=== PATIENT | female | born 1975 | race Two or more races ===

== ENCOUNTER 2023-12-19 10:21 | Emergency (ER) | payer OTHER ==
[~2023-12-19] VITALS: Ht 165.1 cm; Wt 63.6 kg
[2023-12-19 10:26] VITALS: TEMP 98.6
[2023-12-19] MEDS ORDERED: GABA-1181 PO (10:26)
[2023-12-19] MEDS ORDERED: OXYC-490 PO (10:26)
[2023-12-19] MEDS ORDERED: METH-812 PO (10:26)
[2023-12-19] MEDS: LIDOCAINE 5% TRANSDERMAL PATCH TD ONE (11:31)
[2023-12-19] MEDS: KETOROLAC TROMETHAMINE 30 MG/ML VIAL IM ONE (11:31)
[2023-12-19] MEDS: METHOCARBAMOL 500 MG TABLET PO ONE (13:17)
[2023-12-19] MEDS: GABAPENTIN 400 MG CAPSULE PO ONE (13:17)
[2023-12-19] MEDS: ONDANSETRON 4 MG TABLET PO ONE (13:17)
[2023-12-19] MEDS: PROPRANOLOL HCL 10 MG TABLET PO ONE (13:17)
[2023-12-19 13:42] VITALS: BP 154/88; PULSE 96; RESP 18; O2SAT 98
== END 2023-12-19 14:07 | disposition home or self-care (01) ==
LOC: EMS 10:21
DX: S63.92XA Sprain of unspecified part of left wrist and hand, initial encounter (principal); R07.89 Other chest pain; R07.81 Pleurodynia; N64.4 Mastodynia; Z88.0 Allergy status to penicillin; Z79.899 Other long term (current) drug therapy; W01.0XXA Fall on same level from slipping, tripping and stumbling without subsequent striking against object, initial encounter; Y93.89 Activity, other specified; Y92.89 Other specified places as the place of occurrence of the external cause; Y99.8 Other external cause status
CPT/HCPCS: 99284; 71101; 73130; 96372; J1885; Q0162